=== PATIENT | male | born 1950 | race Caucasian/White ===

== ENCOUNTER 2017-07-14 17:30 | Observation (INO) | payer MEDICARE ==
[2017-07-14 18:25] LABS: #Basophils 0.1 thou/uL (0.0-0.2); #Eosinphils 0.2 thou/uL (0.0-0.7); #Lymphocytes 2.8 thou/uL (1.20-3.40); #Monocytes 0.7 thou/uL (0.11-0.59); #Neutrophils 4.4 thou/uL (1.40-6.50); %Basophils 0.9 % (0.0-1.0); %Lymphocytes 34.6 % (21.0-51.0); %Monocytes 8.9 % (0.0-10.0); %Neutrophils 53.7 % (42.0-75.0); Hemoglobin 12.9 g/dL (14.0-18.0); Mean Corpuscular HGB CONC 33.3 g/dL (32.0-36.0); Mean Corpuscular Hemoglobin 29.6 pg (27.0-31.0); Mean Corpuscular Volume 88.8 fl (80.0-94.0); Mean Platelet Volume 8.4 fL (7.4-10.4); Platelet Count 251 thou/uL (130-400); RBC Distribution Width 12.1 % (11.5-14.5); Red Blood Cell (RBC) Count 4.34 mill/uL (4.70-6.10); White Blood Cell (WBC) Count 8.2 thou/uL (4.8-10.8)
[2017-07-14 18:42] VITALS: BMI 31.8
[2017-07-14 18:45] LABS: Anion Gap 12 mmol/L (10-20); BUN (Urea Nitrogen) 28 mg/dL (8.4-25.7); Calc. Creatinine Clearance 56 mL/min (70-130); Calcium 9.3 mg/dL (7.8-10.44); Carbon Dioxide 23 mmol/L (23-31); Chloride 107 mmol/L (98-107); Estimated GFR-MDRD 41; Glucose 82 mg/dL (80-115); Potassium 4.3 mmol/L (3.5-5.1); Sodium 138 mmol/L (136-145)
[2017-07-14 18:49] LABS: CKMB 1.3 ng/mL (0-6.6); Troponin I Less than 0.010 ng/mL (< 0.028)
[2017-07-14 19:05] LABS: Free T4 (Free Thyroxine) 1.26 ng/dL (0.70-1.48); Thyroid Stimulating Hormone 0.3953 uIU/mL (0.35-4.94)
[2017-07-14] MEDS ORDERED: hydrALAZINE 20 MG/ML VIAL SLOW IVP PRN (19:29)
[2017-07-14] MEDS: Lisinopril 20 MG TAB PO SCH (20:14)
[2017-07-14] MEDS: Insulin NPH/Reg Insulin Hm 300 UNITS/3 ML VIAL SC SCH (21:05)
[2017-07-15] MEDS ORDERED: CEFAZOLIN/Water 2 GM/20 ML SYRINGE SLOW IVP SCH (04:00)
[2017-07-15] MEDS: Levothyroxine Sodium 125 MCG TAB PO SCH (06:06)
[2017-07-15] MEDS: Insulin NPH/Reg Insulin Hm 300 UNITS/3 ML VIAL SC SCH ×2 (07:44→21:04)
[2017-07-15] MEDS ORDERED: CEFAZOLIN/Water 2 GM/20 ML SYRINGE ONE (07:59)
[2017-07-15] MEDS ORDERED: CEFAZOLIN 1 GM VIAL ONE (08:00)
[2017-07-15] MEDS ORDERED: Gentamicin 80 MG/2 ML VIAL ONE (08:00)
[2017-07-15] MEDS ORDERED: Carvedilol 6.25 MG TAB PO SCH ×3 (09:38→17:00)
[2017-07-15] MEDS: Lisinopril 20 MG TAB PO SCH ×2 (10:01→21:03)
--- NOTE | 2017-07-15 10:34 | RAD ---
PORTABLE CHEST 1 VIEW: DATE: 07/15/17. TIME: 9:30 a.m. HISTORY: Post cardiac device placement. FINDINGS: The heart size is normal. There is a left-sided pacing device with bipolar leads in the right atrium and the right ventricle. No confluent areas of consolidation, pneumothorax, or pleural effusions ar e seen. IMPRESSION: No acute process. POS: JACKIE
--- NOTE | 2017-07-15 11:13 | CCL ---
CARDIOLOLGY PROCEDURE NOTE: Date: 07/15/17 PROCEDURE: Pacemaker insertion. INDICATION FOR PROCEDURE: 67-year-old gentleman who was found to have severe bradycardia associated with intermittent third deg ree AV heart block. He had been complaining of fatigue and shortness of breath. He was seen in the [facility] yesterday with heart rates in the 30-40 was advised to undergo pacemaker insertion. He does have a history of diabetes also. DESCRIPTION OF PROCEDURE: The patient was taken to the cardiac catheterization lab today where he underwent the procedure witho ut difficulties or complications. He was implanted with a dual chamber pacemaker from [employer] with two screw-in leads, one in the atrium and one in the ventricle. He was implanted with an Advisa dual chamber pacemaker, which is MRI compatible. A MRI compatible device was placed due to his needing the atrial therapies which comes on the Advisa and also due to his young age he may need to undergo MRI procedures in the future.
[2017-07-15 11:56] LABS: #Basophils 0.1 thou/uL (0.0-0.2); #Eosinphils 0.1 thou/uL (0.0-0.7); #Lymphocytes 1.3 thou/uL (1.20-3.40); #Monocytes 0.8 thou/uL (0.11-0.59); #Neutrophils 6.3 thou/uL (1.40-6.50); %Eosinophils 1.2 % (0.0-10.0); %Lymphocytes 15.4 % (21.0-51.0); %Monocytes 8.9 % (0.0-10.0); %Neutrophils 73.4 % (42.0-75.0); Hemoglobin 12.5 g/dL (14.0-18.0); Mean Corpuscular HGB CONC 33.2 g/dL (32.0-36.0); Mean Corpuscular Hemoglobin 29.4 pg (27.0-31.0); Mean Corpuscular Volume 88.7 fl (80.0-94.0); Mean Platelet Volume 9.5 fL (7.4-10.4); Platelet Count 251 thou/uL (130-400); RBC Distribution Width 12.2 % (11.5-14.5); Red Blood Cell (RBC) Count 4.23 mill/uL (4.70-6.10); White Blood Cell (WBC) Count 8.6 thou/uL (4.8-10.8)
[2017-07-15 12:03] LABS: Troponin I 0.064 ng/mL (< 0.028)
--- NOTE | 2017-07-15 12:03 | PDOC.PN ---
- Subjective Encounter Start Date: 07/15/17 Encounter Start Time: 11:20 Subjective: code green 11:17. responded, patiet liteheaded with visual disurbance. -: BP 55 sys - Objective MAR Reviewed: Yes Vital Signs & Weight: Vital Signs (12 hours) Temp Pulse Resp BP BP Pulse Ox 07/15/17 10:03 158/75 H 07/15/17 10:01 148/70 H 07/15/17 09:38 97.0 F L 90 18 159/73 H 98 07/15/17 07:48 98.1 F 70 16 07/15/17 07:35 98.2 F 49 L 16 188/81 H 96 07/15/17 06:32 70 148/70 H 07/15/17 04:05 97.9 F 40 L 16 146/67 H 95 Weight Weight 209 lb 6.4 oz I&O: 07/14/17 07/15/17 07/16/17 06:59 06:59 06:59 Intake Total 560 Output Total 650 600 Balance -90 -600 Result Diagrams: 07/15/17 11:30 07/14/17 18:13 Additional Labs: Accuchecks 07/15/17 07/15/17 07/15/17 11:29 10:34 06:07 POC Glucose 101 88 66 L 07/14/17 20:40 POC Glucose 118 H Radiology Reviewed by me: Yes (cxr- pacemaker CANDE chest, no pheumothrax) EKG Reviewed by me: Yes (dual chamber pacemaker) Phys Exam - Physical Examination Constitutional: NAD clammy, Neck: no JVD Respiratory: clear to auscultation bilateral Cardiovascular: RRR, no significant murmur Gastrointestinal: soft, non-tender, positive bowel sounds Musculoskeletal: no edema Dx/Plan (1) Hypotension Status: Acute (2) Dizzinesses Code(s): R42 - DIZZINESS AND GIDDINESS Status: Acute (3) Status post biventricular pacemaker Code(s): Z95.0 - PRESENCE OF CARDIAC PACEMAKER Status: Acute (4) HTN (hypertension) Code(s): I10 - ESSENTIAL (PRIMARY) HYPERTENSION Status: Chronic Qualifiers: Hypertension type: essential hypertension Qualified Code(s): I10 - Essential (primary) hypertension (5) Dyslipidemia Code(s): E78.5 - HYPERLIPIDEMIA, UNSPECIFIED Status: Chronic - Plan patient placed in trend[place]berg, bolus iv saline started. monitor revealed -: paced rhythem. over next 10-15 min his dizziness resolved and BP micki to -: 120/70. his visual disturbance resolvd. Stat cxr obtained and reviewed, cbc -: obtained and reviewed. Vincent Shell called and case discussed. i remained with -: pt until stable in CCU at 12:5 * . - Discharge Day Encounter end time: 12:05
[2017-07-15 12:04] LABS: ALT (SGPT) 15 U/L (8-55); AST (SGOT) 13 U/L (5-34); Albumin 4.1 g/dL (3.4-4.8); Alkaline Phosphatase 53 U/L (40-150); Anion Gap 13 mmol/L (10-20); BUN (Urea Nitrogen) 26 mg/dL (8.4-25.7); Bilirubin, Total 0.4 mg/dL (0.2-1.2); Calc. Creatinine Clearance 64 mL/min (70-130); Calcium 9.4 mg/dL (7.8-10.44); Carbon Dioxide 23 mmol/L (23-31); Chloride 108 mmol/L (98-107); Estimated GFR-MDRD 48; Globulin 2.2 g/dL (2.4-3.5); Glucose 100 mg/dL (80-115); Potassium 4.6 mmol/L (3.5-5.1); Protein, Total 6.3 g/dL (5.8-8.1); Sodium 139 mmol/L (136-145)
[2017-07-15] MEDS ORDERED: HYDROcodone/Acetaminophen 5/325 mg Tablet PO PRN (13:33)
[2017-07-15] MEDS: HYDROcodone/Acetaminophen 5/325 mg Tablet PO PRN ×3 (13:39→23:42)
--- NOTE | 2017-07-15 13:47 | RAD ---
PORTABLE SUPINE CHEST: Date: 07-15-17 Provided Clinical History: Hypotension. FINDINGS: Comparison is 07-15-17 at 9:30 a.m. Cardiac and mediastinal silhouette is within normal limits. Lungs appear clear. No pleural fluid or p neumothorax apparent. Left subclavian cardiac pacing device is demonstrated with tips overlying the e xpected locations of RA and RV. IMPRESSION: No evidence for an acute cardiopulmonary process. POS: JACKIE
--- NOTE | 2017-07-15 16:02 | EKG ---
Test Reason : POST PACEMAKER INSER Blood Pressure : / mmHG Vent. Rate : 084 BPM Atrial Rate : 084 BPM P-R Int : 174 ms QRS Dur : 168 ms QT Int : 484 ms P-R-T Axes : 021 269 061 degrees QTc Int : 571 ms AV sequential or dual chamber electronic pacemaker No previous ECGs available Confirmed by EMIL LAZO ([id number]) on 07/15/2017 4:02:13 PM Referred By: ANSELMO Confirmed By:EMIL LAZO
[2017-07-15] MEDS: Sodium Chloride 0.9% 1,000 ML IV SCH (18:29)
--- NOTE | 2017-07-15 19:05 | CON ---
DATE OF CONSULTATION: 07/15/2017 HISTORY OF PRESENT ILLNESS: Mr. Laureano is a pleasant gentleman who was transferred in the ICU for hypotension after he received blood pressure medicines this morning. Blood pressure is normalized. He has no complaints, says he feels much better. He almost passed out earlier he says. Chest radiograph shows no pneumothorax. Echocardiogram was being done when I examined him and there was no evidence of pericardial effusion or tamponade by my bedside review of the echo and discussing with the artificial insemination technician. He has never been hospitalized here. PAST MEDICAL HISTORY: Remarkable for; 1. Hypertension. 2. Lipid disorder. FAMILY HISTORY: Negative for lung disease at an early age. SOCIAL HISTORY: Noncontributory REVIEW OF SYSTEMS: 10 point system reviewed otherwise, completely negative. He denies any chest pain or shortness of breath at this time. He denies lightheaded feeling. He has had no orthostatic symptoms since he arrived in the ICU. Denies nausea or vomiting. PHYSICAL EXAMINATION: GENERAL: Pleasant gentleman, states no complaints VITAL SIGNS: Blood pressure is 142/56, heart rate is 80, respiratory rate is 18 and oximetry is 90%. HEENT: Pupils are equal. Sclerae is anicteric. NECK: Supple with no lymphadenopathy. LUNGS: Clear. HEART: Regular rhythm. S1 and S2 are normal. S1 and S2 are not distant. ABDOMEN: Soft and nontender, without any organomegaly. EXTREMITIES: Without clubbing, cyanosis or edema. IMAGING DATA: Chest radiograph shows no infiltrates, no evidence for pneumothorax. This was reviewed by me with left-sided pacing device. IMPRESSION: Hypotension secondary to medication, most likely initially given the rapid resolution. PLAN: Continue to monitor per Cardiology. If he is stable into this evening and the ICU needs a bed, it would be reasonable to move him back to a telemetry unit. It is unlikely this will happen again. This appears temporally to be related to medication administration. There is nothing to suggest his tamponade or pneumothorax causing his hypotension. This is a 70-minute consult in which at least 50% of the time was spent coordinating care on the unit. SOPHIA
[2017-07-16] MEDS: Sodium Chloride 0.9% 1,000 ML IV SCH (03:37)
[2017-07-16] MEDS: Levothyroxine Sodium 125 MCG TAB PO SCH (05:57)
[2017-07-16] MEDS ORDERED: Carvedilol 3.125 MG TAB PO SCH (08:00)
[2017-07-16 08:17] VITALS: TEMP 97.9
[2017-07-16] MEDS ORDERED: Ondansetron HCl/PF 8 MG in Sodium Chloride 0.9% 50 ML IVPB SCH (09:00)
[2017-07-16] MEDS ORDERED: Pantoprazole 40 MG VIAL IVP SCH (09:00)
[2017-07-16] MEDS ORDERED: Ondansetron HCl/PF 4 MG/2 ML Vial SLOW IVP SCH (10:45)
[2017-07-16] MEDS: Insulin NPH/Reg Insulin Hm 300 UNITS/3 ML VIAL SC SCH (10:47)
[2017-07-16] MEDS: Lisinopril 20 MG TAB PO SCH (11:09)
[2017-07-16 11:24] VITALS: BP 170/68
[2017-07-16] MEDS ORDERED: traMADol HCl 50 MG TAB PO PRN (11:50)
--- NOTE | 2017-07-16 12:08 | PRG ---
DATE OF SERVICE: 07/16/2017 SUBJECTIVE: This morning, he was complaining of nausea. Actually, while I was in the room, he start ed vomiting . 8 mg of Zofran was ordered IV push. Hopefully, this is held by now. He had no chest pain overnight. OBJECTIVE: VITAL SIGNS: Blood pressure has actually been elevated this morning up to 170/68, heart rate was in the 80s and respiratory rate was in the teens. LUNGS: Clear. HEART: Regular rhythm. ABDOMEN: Soft and nontender. Intake and output is positive 51 mL. He had 2375 out. His pacemaker insertion site is without erythema, drainage or bleeding. LABORATORY DATA: The only lab today is a glucose of 163. IMPRESSION: 1. Status post pacing for a third-degree heart block. 2. Status post hypotension, most likely secondary to blood pressure medicines. He had no tamponade. No post-procedure pneumothorax. 3. Nausea and vomiting of unclear etiology. He took hydrocodone last night on an empty stomach. Th is may have triggered this. I think he would be wearing off by now. I will put in an order for tram adol for pain and we can avoid the hydrocodone. He is stable to move out of the ICU in my opinion.
[2017-07-16] MEDS ORDERED: Lisinopril 10 MG TAB PO SCH (13:31)
--- NOTE | 2017-07-16 14:04 | DIS ---
DATE OF ADMISSION: 07/14/2017 DATE OF DISCHARGE: 07/16/2017 DISCHARGE DIAGNOSES: Third-degree atrioventricular block. PROCEDURE: Status post pacemaker placement. HOSPITAL COURSE: Mr. Laureano is a very pleasant 67-year-old gentleman, whom I saw and evaluated in the office. He had dizziness, lightheadedness, and an episode of syncope one week prior to presentation . He was found to be in third-degree AV block. I recommended admission. He underwent pacemaker on 07/15/2017. This went without complication. While on the floor, he did de velop significant hypotension, likely due to medications. A stat echo was performed that did not sug gest a pericardial effusion. He was transferred to the ICU for observation. He did well while in [facility] ICU. He was discharged on 07/16/2017 in stable condition. DISCHARGE MEDICATIONS: Include lisinopril 10 mg one p.o. b.i.d., Coreg 6.25 one p.o. b.i.d., otherwi se resume outpatient medications. CONDITION AT DISCHARGE: Stable.
== END 2017-07-16 13:50 | disposition home or self-care (01) ==
LOC: OBSVTOIN 17:30 → INTOOBSV 17:30 → 2SW 17:30 → CCU 07-15 11:41
PROVIDERS: ADMIT Internal Medicine Cardiovascular Disease; ATTEND Internal Medicine Cardiovascular Disease
PROC: 0JH606Z Insertion of Pacemaker, Dual Chamber into Chest Subcutaneous Tissue and Fascia, Open Approach (ICD-10-PCS; principal; 2017-07-14)
PROC: 02H63JZ Insertion of Pacemaker Lead into Right Atrium, Percutaneous Approach (ICD-10-PCS; 2017-07-14)
PROC: 02HK3JZ Insertion of Pacemaker Lead into Right Ventricle, Percutaneous Approach (ICD-10-PCS; 2017-07-14)
DX: I44.2 Atrioventricular block, complete (principal); E11.9 Type 2 diabetes mellitus without complications; R11.2 Nausea with vomiting, unspecified; R42 Dizziness and giddiness; I95.9 Hypotension, unspecified; I10 Essential (primary) hypertension; E78.5 Hyperlipidemia, unspecified; F17.210 Nicotine dependence, cigarettes, uncomplicated; Z79.4 Long term (current) use of insulin; Z79.899 Other long term (current) drug therapy; Z98.890 Other specified postprocedural states
CPT/HCPCS: 33208; 33249; 71045; 80048; 80053; 82553; 82962 ×3; 84439; 84443; 84484 ×2; 85025 ×2; 93005; 93306; C1785; C1898 ×2; 36415; 36416; 93010; A4216; C9113; J0690; J1580; J2405; J7050

== ENCOUNTER 2020-02-21 12:35 | Outpatient (CLI) | payer MEDICARE | END 2020-02-21 12:36 | disposition home or self-care (01) | LOC: DTY/OP 12:35 | PROVIDERS: ATTEND Family Medicine | DX: E66.9 Obesity, unspecified (principal); E11.9 Type 2 diabetes mellitus without complications | CPT/HCPCS: 97802 ==

== ENCOUNTER 2021-07-21 11:51 | Outpatient (CLI) | payer MEDICARE | END 2021-07-21 11:52 | disposition home or self-care (01) | LOC: CT 11:51 | PROVIDERS: ATTEND Internal Medicine | DX: C20 Malignant neoplasm of rectum (principal); K76.9 Liver disease, unspecified; K76.89 Other specified diseases of liver; Z98.890 Other specified postprocedural states | CPT/HCPCS: 74177; 82565 ==

== ENCOUNTER 2022-01-05 08:54 | Outpatient (CLI) | payer MEDICARE ==
[2022-01-05] MEDS ORDERED: Iopamidol 370 76% 100 ML VIAL ONE (15:46)
== END 2022-01-05 08:55 | disposition home or self-care (01) ==
LOC: CT 08:54
PROVIDERS: ATTEND Internal Medicine
DX: K76.9 Liver disease, unspecified (principal); K76.89 Other specified diseases of liver; Z85.038 Personal history of other malignant neoplasm of large intestine
CPT/HCPCS: 74170; 82565; Q9967